=== PATIENT | female | born 1955 | race Caucasian/White ===

== ENCOUNTER → 2019-03-02 | Outpatient (CLI) | payer OTHER, MEDICAID ==
--- NOTE | 2019-03-02 17:16 | PCVCIMAG ---
EXAM: BILATERAL SUPERFICIAL VENOUS DUPLEX INDICATION: Leg pain and swelling. FINDINGS: Right leg: No thrombus in the common femoral, main femoral, or popliteal veins. These veins are compressible. Right Great Saphenous Vein: At the saphenofemoral junction the diameter is 6.0 mm, in the mid thigh it is 3.8 mm, and in the calf it is 4.1 mm. There is not significant venous insufficiency/reflux throughout. Venous insufficiency/reflux duration is 0 seconds. Right Small Saphenous Vein: At the saphenopopliteal junction the diameter is 3.0 mm, and in the calf it is 4.1 mm. There is not significant venous insufficiency/reflux throughout. Venous insufficiency/reflux duration is 0 seconds. There is not a cranial extension present. Left leg: No thrombus in the common femoral, main femoral, or popliteal veins. These veins are compressible. Left Great Saphenous Vein: At the saphenofemoral junction the diameter is 6.5 mm, in the mid thigh it is 6.1 mm, and in the calf it is 3.2 mm. There is not significant venous insufficiency/reflux throughout. Venous insufficiency/reflux duration is 0 seconds. Left Small Saphenous Vein: At the saphenopopliteal junction the diameter is 4.0 mm, and in the calf it is 5.0 mm. There is not significant venous insufficiency/reflux throughout. Venous insufficiency/reflux duration is 0 seconds. There is not a cranial extension present. IMPRESSION: Right Great Saphenous Vein: No significant venous insufficiency/reflux is present as noted above. Right Small Saphenous Vein: No significant venous insufficiency/reflux is present as noted above. Left Great Saphenous Vein: No significant venous insufficiency/reflux is present as noted above. Left Small Saphenous Vein: No significant venous insufficiency/reflux is present as noted above. LOC:[id number]
== END | disposition home or self-care (01) ==
LOC: PCVCIMAG 14:23
PROVIDERS: ATTEND Family Medicine
DX: I83.893 Varicose veins of bilateral lower extremities with other complications (principal); M79.89 Other specified soft tissue disorders; I89.0 Lymphedema, not elsewhere classified
CPT/HCPCS: 93970